=== PATIENT | male | born 1940 | race Caucasian/White ===

== ENCOUNTER 2017-12-07 09:47 | Emergency (ER) | payer MEDICARE, BC ==
[2017-12-07 10:04] VITALS: BP 145/74
--- NOTE | 2017-12-07 10:39 | UC ---
Skin Complaint HPI - HPI Summary HPI Summary: 2 weeks ago this gentleman had a tick on his left inner thigh. It was removed by his primary care doctor and was tested for Lyme. One week later the tick came back positive for Lyme the patient had no symptoms but decided to go on treatment for Lyme. The patient has been taking doxycycline and then outside in the sun planting strawberries and doing yard work for the past 4 days patient has developed a photosensitivity/sunburn on both of his upper arms. It is itchy and in some places losing plasma. Patient's last dose of doxycycline was last night - History of Current Complaint Hx Obtained From: Patient Onset/Duration: Sudden Onset, Lasting Days - 2, Still Present Timing: Constant Pain Intensity: 0 Pain Scale Used: 0-10 Numeric - Patient reports the rash to be itchy. Location: Discrete - both forearms Character: Swelling, Pruritus, Redness Aggravating Factor(s): Nothing Alleviating Factor(s): Nothing Associated Signs & Symptoms: Positive: Rash Related History: Possible Reaction to: Environmental Exposure - sun reaction while on doxycycline <Rosemarie Sebastian - Last Filed: 12/07/17 11:10> <Lana Ochoa - Last Filed: 12/07/17 13:07> - History of Current Complaint Chief Complaint: [employer] Time Seen by Provider: 12/07/17 10:28 Stated Complaint: SKIN COMPLAINT - Allergy/Home Medications Allergies/Adverse Reactions: Allergies Allergy/AdvReac Type Severity Reaction Status Date / Time bacitracin Allergy Intermediate Blisters Verified 12/07/17 10:08 [From Neosporin ([id number])] levofloxacin [From Levaquin] Allergy Intermediate Hives Verified 12/07/17 10:52 neomycin Allergy Intermediate Blisters Verified 12/07/17 10:08 [From Neosporin ([id number])] polymyxin B Allergy Intermediate Blisters Verified 12/07/17 10:08 [From Neosporin ([id number])] Home Medications: Home Medications Lisinopril/HCTZ 20/25(NF) [Zestoretic 20/25(NF)] 1 tab PO DAILY 12/07/17 [ History Confirmed 12/07/17] Metformin ER (NF) 500 mg PO BID 12/07/17 [History Confirmed 12/07/17] Metoprolol Succinate XL TAB* [Toprol XL TAB*] 50 mg PO DAILY 12/07/17 [History Confirmed 12/07/17] NIFEdipine CAP* [Procardia CAP*] 10 mg PO DAILY 12/07/17 [History Confirmed 08/25] Tamsulosin HCl [Flomax] 0.4 mg PO DAILY 12/07/17 [History Confirmed 12/07/17] Review of Systems Constitutional: Negative Skin: Other - itching oozing with some swelling on both arms Eyes: Negative ENT: Negative Respiratory: Negative Cardiovascular: Negative Gastrointestinal: Negative Genitourinary: Negative Motor: Negative Neurovascular: Negative Musculoskeletal: Negative Neurological: Negative Psychological: Negative Is Patient Immunocompromised?: No All Other Systems Reviewed And Are Negative: Yes <Rosemarie Sebastian - Last Filed: 12/07/17 11:10> PMH/Surg Hx/FS Hx/Imm Hx Previously Healthy: No Endocrine History: Diabetes Cardiovascular History: Hypertension Other GI/ History: BPH - Surgical History Surgical History: Yes Surgery Procedure, Year, and Place: bilat hip surgeries - Family History Known Family History: Positive: None - Social History Occupation: Retired Lives: With Family Alcohol Use: None Substance Use Type: None Smoking Status (MU): Never Smoked Tobacco <Rosemarie Sebastian - Last Filed: 12/07/17 11:10> Physical Exam Triage Information Reviewed: Yes Appearance: No Pain Distress, Ill-Appearing - mild, Obese Vital Signs: Initial Vital Signs Temp 98.6 F 12/07/17 09:55 Pulse 74 12/07/17 09:55 Resp 16 12/07/17 09:55 BP 145/74 12/07/17 09:55 Pulse Ox 97 12/07/17 09:55 Vital Signs Reviewed: Yes Eye Exam: Normal Eyes: Positive: Conjunctiva Clear ENT Exam: Normal ENT: Positive: Normal ENT inspection, Hearing grossly normal. Negative: Pharyngeal erythema, Nasal congestion, Trismus, Muffled voice, Hoarse voice Dental Exam: Normal Neck exam: Normal Neck: Positive: Supple, Nontender, No Lymphadenopathy Respiratory Exam: Normal Respiratory: Positive: Chest non-tender, No respiratory distress, No accessory muscle use Cardiovascular Exam: Normal Cardiovascular: Positive: RRR, Pulses Normal, Brisk Capillary Refill Musculoskeletal Exam: Normal Musculoskeletal: Positive: Strength Intact, ROM Intact, Edema @ - both hands Neurological Exam: Normal Neurological: Positive: Alert, Muscle Tone Normal Psychological Exam: Normal Skin Exam: Other - erythema with some ozzing and blistering upper arms itchy red puritic rash Skin: Positive: Other <Rosemarie Sebastian - Last Filed: 12/07/17 11:10> Vital Signs: Initial Vital Signs Temp 98.6 F 12/07/17 09:55 Pulse 74 12/07/17 09:55 Resp 16 12/07/17 09:55 BP 145/74 12/07/17 09:55 Pulse Ox 97 12/07/17 09:55 <Lana Ochoa - Last Filed: 12/07/17 13:07> Course/Dx - Course Course Of Treatment: stop Doxycycline, stay out of sun, sildadene to burnt skin , benadryl for itching, chnage anti-biodic to amoxicillin - Diagnoses Provider Diagnoses: photosensitivity to Doxycycle/sun burn, hypertension in poor control <Rosemarie Sebastian - Last Filed: 12/07/17 11:10> Discharge - Sign-Out/Discharge Documenting (check all that apply): Discharge/Admit/Transfer - Billing Disposition and Condition Condition: STABLE Disposition: HOME <Rosemarie Sebastian - Last Filed: 12/07/17 11:10> - Billing Disposition and Condition Condition: STABLE Disposition: HOME <Lana Ochoa - Last Filed: 12/07/17 13:07> - Discharge Plan Condition: Stable Disposition: HOME Prescriptions: Amoxicillin PO (*) [Amoxicillin 500 MG CAP*] 500 mg PO TID 20 Days #60 cap Silver Sulfadiazine 1%* [SILVadine 1%*] 1 applic TOPICAL BID #1 tube Patient Education Materials: Diphenhydramine (By mouth), Lyme Disease (ED), Hypertension (ED), Photosensitivity (ED) Referrals: Carlos Pemberton MD [Primary Care Provider] - 3 Days Attestation Statement User Type: Provider - I was available for consult. This patient was seen by the [facility]. The patient was not presented to, seen by, or examined by me. -Junito <Lana Ochoa - Last Filed: 12/07/17 13:07>
== END 2017-12-07 11:11 | disposition home or self-care (01) ==
LOC: UCCORT 09:47
DX: L56.8 Other specified acute skin changes due to ultraviolet radiation (principal); I10 Essential (primary) hypertension; A69.20 Lyme disease, unspecified; E11.9 Type 2 diabetes mellitus without complications; Z88.1 Allergy status to other antibiotic agents
CPT/HCPCS: 99212; G0463

== ENCOUNTER → 2019-07-15 07:14 | Day surgery (SDC) | payer MEDICARE, BC ==
[~2019-07-15 07:14] MED LIST: Acetaminophen TAB* 325 MG PO PRN; Buffered Lidocaine 1% SYRIN* 1 ML/SYRINGE INTRADERM ONE; Cyclopentolate 1% OPTH.SOL* 2 ML BTL ONE; Ketorolac 0.5% OPHTH (NF) 0.5 % 5 ML BTL ONE; Lidocaine 1% MPF ** 5 ML VIAL ONE; Lidocaine 2% PF * 5 ML VIAL ONE; Lidocaine 2% w/ EPI 1:200,000* 20 ML SDV VIAL ONE; Neomycin/Polymy/Dex OPTH.SUSP* MAXITROL 0.1% 5 ML ONE; Phenylephrine OPHTH SOL 2.5%* 2 ML ONE; Povidone Iodine 5% OPTH* 30 ML BTL ONE; Proparacaine 0.5% OPHTH.SOL* 15 ML BTL ONE; Propofol* 10 MG/ML 20 ML BTL ONE; acetaZOLAMIDE TAB* 250 MG ONE
[2019-07-15 10:25] VITALS: BP 119/65
--- NOTE | 2019-07-15 12:03 | OP ---
DATE OF OPERATION: 07/15/2019. DATE OF : 1940. SURGEON: Gera Tejeda M.D. PREOPERATIVE DIAGNOSIS: Cataract right eye. POSTOPERATIVE DIAGNOSIS: Cataract right eye. OPERATIVE PROCEDURE: Extracapsular cataract extraction with intraocular lens implant right eye. PROCEDURE: The patient was brought to the operating room after being given 1/2% Alcaine with epineph rine drops in the preoperative area. The eye was prepped and draped in the usual sterile fashion. S terile drape and eyelid speculum were placed. Again, topical 1/2% Alcaine with epinephrine was given . A paracentesis incision was made at the 9 o'clock position with the No.75 blade. Clear cornea inc ision 2.2 x 2.2-mm was created at the 12 o'clock position starting at the anterior limbus using the 2 .2-mm keratome. The anterior chamber was irrigated with 0.4 mL of 1% non-preservative intracameral l idocaine and filled with DisCoVisc. A capsulorrhexis was completed using the cystotome and the Utrat a forceps. Hydrodissection was performed with balanced salt solution. The lens nucleus was removed w ith the Phacoemulsification handpiece without incident. Cortex was removed with the irrigation-aspir ation handpiece. The capsular bag was re-inflated using DisCoVisc and an SN60WF 22.5 implant was ins erted with the shooter. The pupil was very small, so a Malyugin ring was used to dilate the pupil pr ior to capsulorrhexis and removed after insertion of the lens. The irrigation-aspiration handpiece w as used to remove all residual DisCoVisc. The eye was refilled with balanced salt solution and the w ound checked and found to be watertight. Topical Maxitrol drops were given. Indication for complex cataract surgery: Pupil abnormalities requiring pupil dilation device. [id number]/[facility] #: [id number]
== END | disposition home or self-care (01) ==
LOC: OREAST 07:14
PROVIDERS: ATTEND Specialist
DX: H25.811 Combined forms of age-related cataract, right eye (principal); H21.561 Pupillary abnormality, right eye; E11.9 Type 2 diabetes mellitus without complications; Z79.84 Long term (current) use of oral hypoglycemic drugs; I10 Essential (primary) hypertension; Z87.891 Personal history of nicotine dependence; M19.90 Unspecified osteoarthritis, unspecified site
CPT/HCPCS: A9270-GY; J2704; V2632

== ENCOUNTER 2019-07-22 13:19 | Day surgery (SDC) | payer MEDICARE, BC ==
[~2019-07-22 13:19] MED LIST changes: -Cyclopentolate 1% OPTH.SOL* 2 ML BTL ONE; -Ketorolac 0.5% OPHTH (NF) 0.5 % 5 ML BTL ONE; -Lidocaine 1% MPF ** 5 ML VIAL ONE; -Lidocaine 2% PF * 5 ML VIAL ONE; -Lidocaine 2% w/ EPI 1:200,000* 20 ML SDV VIAL ONE; -Neomycin/Polymy/Dex OPTH.SUSP* MAXITROL 0.1% 5 ML ONE; -Phenylephrine OPHTH SOL 2.5%* 2 ML ONE; -Povidone Iodine 5% OPTH* 30 ML BTL ONE; -Proparacaine 0.5% OPHTH.SOL* 15 ML BTL ONE; -Propofol* 10 MG/ML 20 ML BTL ONE; -acetaZOLAMIDE TAB* 250 MG ONE
[2019-07-22] MEDS ORDERED: Lidocaine 2% w/ EPI 1:200,000* 20 ML SDV VIAL ONE (15:03)
[2019-07-22] MEDS ORDERED: Neomycin/Polymy/Dex OPTH.SUSP* MAXITROL 0.1% 5 ML ONE (15:03)
[2019-07-22] MEDS ORDERED: Proparacaine 0.5% OPHTH.SOL* 15 ML BTL ONE (15:03)
[2019-07-22] MEDS ORDERED: Cyclopentolate 1% OPTH.SOL* 2 ML BTL ONE (15:03)
[2019-07-22] MEDS ORDERED: Povidone Iodine 5% OPTH* 30 ML BTL ONE (15:03)
[2019-07-22] MEDS ORDERED: Lidocaine 1% MPF ** 5 ML VIAL ONE (15:03)
[2019-07-22] MEDS ORDERED: Phenylephrine OPHTH SOL 2.5%* 2 ML ONE (15:03)
[2019-07-22] MEDS ORDERED: Ketorolac 0.5% OPHTH (NF) 0.5 % 5 ML BTL ONE (15:03)
[2019-07-22] MEDS ORDERED: acetaZOLAMIDE TAB* 250 MG ONE (15:03)
[2019-07-22] MEDS ORDERED: Midazolam* 1 MG/ML 5 ML VIAL (5 MG) ONE (15:35)
[2019-07-22 16:27] VITALS: BP 152/78
--- NOTE | 2019-07-23 05:03 | OP ---
DATE OF OPERATION: 07/22/19 - [facility] DATE OF : 36 SURGEON: Gera Tejeda M.D. PREOPERATIVE DIAGNOSIS: Cataract, left eye. POSTOPERATIVE DIAGNOSIS: Cataract, left eye. OPERATIVE PROCEDURE: Extracapsular cataract extraction with intraocular lens implant, left eye. DESCRIPTION OF PROCEDURE: The patient was brought to the operating room after being given 1/2% Alcaine with epinephrine drops in the preoperative area. The eye was prepped and draped in the usual sterile fashion. Sterile drape and eyelid speculum were placed. Again, topical 1/2% Alcaine with epinephrine was given. A paracentesis incision was made at the 3 o'clock position with the No.75 blade. Clear cornea incision 2.2 x 2.2-mm was created at the 6 o'clock position starting at the anterior limbus using the 2.2-mm keratome. The anterior chamber was irrigated with 0.4 mL of 1% non-preservative intracameral lidocaine and filled with DisCoVisc. A capsulorrhexis was completed using the cystotome and the Utrata forceps. Hydrodissection was performed with balanced salt solution. The lens nucleus was removed with the Phacoemulsification handpiece without incident. Cortex was removed with the irrigation-aspiration handpiece. The capsular bag was re-inflated using DisCoVisc and an SN60WF 23.5 implant was inserted with the shooter. A Malyugin ring was used to dilate the pupil prior to capsulorrhexis for 3 mm pupil. This was removed after insertion of the lens indicated for complex cataract surgery, pupil abnormalities requiring pupil dilation device. The irrigation-aspiration handpiece was used to remove all residual DisCoVisc. The eye was refilled with balanced salt solution and the wound checked and found to be watertight. Topical Maxitrol drops were given. [id number]/[facility] #: [id number] MTDD
== END 2019-07-22 16:22 | disposition home or self-care (01) ==
LOC: OREAST 13:19
PROVIDERS: ATTEND Specialist
DX: H25.812 Combined forms of age-related cataract, left eye (principal); E11.9 Type 2 diabetes mellitus without complications; Z79.84 Long term (current) use of oral hypoglycemic drugs; I10 Essential (primary) hypertension; Z87.891 Personal history of nicotine dependence; Z96.649 Presence of unspecified artificial hip joint
CPT/HCPCS: A9270-GY; J2250; V2632

== ENCOUNTER 2023-07-02 12:27 | Inpatient (IN) ==
[2023-07-02] MEDS ORDERED: Albuterol HFA INHALER 8 gm MDI INH ONE (14:36)
[2023-07-02 15:38] LABS: ABS Lymphocytes 1.1 10^3/uL (1.0-4.8); ABS Monocytes 0.5 10^3/uL (0.0-1.1); ABS Neutrophils 8.5 10^3/uL (1.5-7.6); ABS Nucleated RBC 0.01 10^3/ul; Hematocrit 44.1 % (38-53); Hemoglobin 14.8 g/dL (13.2-16.3); Lymphocyte % 10.5 %; Mean Corpuscular Hemoglobin 29.4 pg (27-33); Mean Corpuscular Hgb Conc 33.6 g/dL (31-36); Mean Corpuscular Volume 87.7 fL (80-97); Mean Platelet Volume 9.8 fL (7.5-11.2); Nucleated Red Blood Cells % 0.1 %/100WBC (0.0-0.8); Platelet Count 175 10^3/uL (150-450); Red Blood Count 5.03 10^6/uL (4.06-5.63); Red Cell Distribution Width 15.3 % (12-17); White Blood Count 10.1 10^3/uL (3.6-10.2)
[2023-07-02 16:01] LABS: ALT 13 U/L (7-52); Albumin 4.4 g/dL (3.2-5.2); Albumin/Globulin Ratio 1.3 (1-3); Alkaline Phosphatase 56 U/L (35-149); Blood Urea Nitrogen 33 mg/dL (6-24); CO2 Carbon Dioxide 26 mmol/L (22-32); Calcium 9.3 mg/dL (8.6-10.3); Chloride 102 mmol/L (101-111); Creatinine, Serum 1.42 mg/dL (0.67-1.17); Globulin 3.3 g/dL (2-4); Glucose 133 mg/dL (70-100); Sodium 139 mmol/L (135-145); Total Bilirubin 0.7 mg/dL (0.2-1.0); Total Protein 7.7 g/dL (6.4-8.9); eGFR CKD-EPI 48.4 (>60)
[2023-07-02 16:04] LABS: High Sens Troponin Baseline 12 pg/mL (<20)
[2023-07-02 16:13] LABS: Anion Gap 11 mmol/L (2-16)
[2023-07-02 16:29] LABS: Potassium Redraw 3.9 mmol/L (3.5-5.0)
[2023-07-02] MEDS ORDERED: Remdesivir 100 mg Vial 200 MG in NS 0.9% 250 ml 210 ML IV ONE (19:14)
[2023-07-02] MEDS ORDERED: Dextrose 50% Syringe 50 ml 25 GM/50 ML SYRINGE IV PUSH PRN (19:19)
[2023-07-02] MEDS: Enoxaparin 40 MG/0.4 ML SYR SUBCUT SCH (19:59)
[2023-07-02] MEDS ORDERED: Azithromycin 500 mg/250 ml NS 500 MG/250 ML BAG IVPB SCH (20:00)
[2023-07-02] MEDS: Azithromycin 500 mg/250 ml NS 500 MG/250 ML BAG IVPB SCH (20:01)
[2023-07-02] MEDS: NS 0.9% 1000 ml BAG 1,000 ML IV SCH (20:01)
[2023-07-02] MEDS ORDERED: Benzocaine/Menthol LOZ PO PRN (20:02)
[2023-07-03] MEDS ORDERED: Ondansetron 4 mg VIAL 2 MG/ML 2 ml VIAL IV PRN (03:13)
[2023-07-03 08:13] LABS: ABS Lymphocytes 0.6 10^3/uL (1.0-4.8); ABS Monocytes 0.4 10^3/uL (0.0-1.1); ABS Neutrophils 9.2 10^3/uL (1.5-7.6); ABS Nucleated RBC 0.01 10^3/ul; Hemoglobin 13.9 g/dL (13.2-16.3); Lymphocyte % 6.2 %; Mean Corpuscular Hemoglobin 29.6 pg (27-33); Mean Corpuscular Hgb Conc 33.9 g/dL (31-36); Mean Corpuscular Volume 87.3 fL (80-97); Mean Platelet Volume 9.3 fL (7.5-11.2); Nucleated Red Blood Cells % 0.1 %/100WBC (0.0-0.8); Platelet Count 161 10^3/uL (150-450); Red Cell Distribution Width 15.3 % (12-17); White Blood Count 10.2 10^3/uL (3.6-10.2)
[2023-07-03 08:16] LABS: INR 1.1 (0.83-1.13)
[2023-07-03 08:45] LABS: Albumin 3.9 g/dL (3.2-5.2); Albumin/Globulin Ratio 1.3 (1-3); Calcium 8.4 mg/dL (8.6-10.3); Creatinine, Serum 1.33 mg/dL (0.67-1.17); Magnesium 1.5 mg/dL (1.9-2.7); Potassium 3.4 mmol/L (3.5-5.0); Total Bilirubin 0.6 mg/dL (0.2-1.0); Total Protein 6.9 g/dL (6.4-8.9); eGFR CKD-EPI 52.4 (>60)
[2023-07-03] MEDS: NS 0.9% 1000 ml BAG 1,000 ML IV SCH (11:23)
[2023-07-03] MEDS ORDERED: Dextrose 50% Syringe 50 ml 25 GM/50 ML SYRINGE IV PUSH PRN (13:21)
[2023-07-03] MEDS ORDERED: Magnesium Sulfate 2 gm BAG 2 GM/50 ML BAG IVPB ONE (13:25)
[2023-07-03] MEDS: KCL 20 MEQ/100 ML IVPREMIX 20 MEQ/100 ML BAG IV SCH ×3 (15:22→21:07)
[2023-07-03] MEDS ORDERED: Magnesium Sulfate IV 1GM/100ML 1 GM/100 ML BAG IV ONE (15:25)
[2023-07-03] MEDS ORDERED: METFORMIN 1000 MG PO SCH (21:00)
[2023-07-03] MEDS: Enoxaparin 40 MG/0.4 ML SYR SUBCUT SCH (21:07)
[2023-07-04] MEDS: Azithromycin 500 mg/250 ml NS 500 MG/250 ML BAG IVPB SCH
[2023-07-04] MEDS: Remdesivir 100 mg Vial 100 MG in NS 0.9% 250 ml 230 ML IV SCH ×2 (01:22→21:55)
[2023-07-04 07:09] LABS: ABS Lymphocytes 0.6 10^3/uL (1.0-4.8); ABS Monocytes 0.2 10^3/uL (0.0-1.1); ABS Neutrophils 8.8 10^3/uL (1.5-7.6); Hematocrit 37.9 % (38-53); Hemoglobin 12.7 g/dL (13.2-16.3); Lymphocyte % 6.3 %; Mean Corpuscular Hemoglobin 29.4 pg (27-33); Mean Corpuscular Hgb Conc 33.6 g/dL (31-36); Mean Corpuscular Volume 87.3 fL (80-97); Mean Platelet Volume 9.3 fL (7.5-11.2); Platelet Count 159 10^3/uL (150-450); Red Blood Count 4.34 10^6/uL (4.06-5.63); Red Cell Distribution Width 15.4 % (12-17); White Blood Count 9.6 10^3/uL (3.6-10.2)
[2023-07-04 07:28] LABS: Albumin 3.5 g/dL (3.2-5.2); Albumin/Globulin Ratio 1.3 (1-3); Calcium 7.8 mg/dL (8.6-10.3); Creatinine, Serum 1.2 mg/dL (0.67-1.17); Globulin 2.8 g/dL (2-4); Magnesium 2.3 mg/dL (1.9-2.7); Phosphorus 3.1 mg/dL (2.5-5.0); Potassium 4.3 mmol/L (3.5-5.0); Total Bilirubin 0.4 mg/dL (0.2-1.0); Total Protein 6.3 g/dL (6.4-8.9); eGFR CKD-EPI 59.3 (>60)
[2023-07-04 07:30] LABS: INR 1.16 (0.83-1.13)
[2023-07-04] MEDS: Enoxaparin 40 MG/0.4 ML SYR SUBCUT SCH (21:56)
[2023-07-05 07:37] LABS: ABS Lymphocytes 0.7 10^3/uL (1.0-4.8); ABS Monocytes 0.4 10^3/uL (0.0-1.1); ABS Nucleated RBC 0.01 10^3/ul; Hematocrit 39.1 % (38-53); Hemoglobin 13.1 g/dL (13.2-16.3); Lymphocyte % 7.2 %; Mean Corpuscular Hemoglobin 29.5 pg (27-33); Mean Corpuscular Hgb Conc 33.6 g/dL (31-36); Mean Corpuscular Volume 87.8 fL (80-97); Mean Platelet Volume 9.1 fL (7.5-11.2); Nucleated Red Blood Cells % 0.1 %/100WBC (0.0-0.8); Platelet Count 222 10^3/uL (150-450); Red Blood Count 4.45 10^6/uL (4.06-5.63); Red Cell Distribution Width 15.3 % (12-17); White Blood Count 10.2 10^3/uL (3.6-10.2)
[2023-07-05 07:39] LABS: INR 1.07 (0.83-1.13)
[2023-07-05 07:53] LABS: Albumin 3.6 g/dL (3.2-5.2); Albumin/Globulin Ratio 1.3 (1-3); Calcium 8.3 mg/dL (8.6-10.3); Creatinine, Serum 1.07 mg/dL (0.67-1.17); Globulin 2.8 g/dL (2-4); Magnesium 2.2 mg/dL (1.9-2.7); Phosphorus 2.4 mg/dL (2.5-5.0); Total Bilirubin 0.5 mg/dL (0.2-1.0); Total Protein 6.4 g/dL (6.4-8.9)
[2023-07-05 14:13] VITALS: BP 138/74
== END 2023-07-05 15:30 | disposition home or self-care (01) | DRG 177 ==
LOC: EDHOLD 12:27 → ED 12:27 → SUATTDRO 19:15 → MED 21:15
PROVIDERS: ADMIT Internal Medicine; ATTEND Student in an Organized Health Care Education/Training Program